=== PATIENT | male | born 1965 | race Caucasian/White ===

== ENCOUNTER 2022-04-14 13:15 | Outpatient (REF) | payer SELFPAY ==
[2022-05-30 18:17] LABS: Lithium, Serum or Plasma 0.2
== END 2022-04-14 13:16 | disposition home or self-care (01) ==
LOC: NPINS 13:15
PROVIDERS: Nurse Practitioner Psychiatric/Mental Health; PCP Family Medicine
DX: Z51.81 Encounter for therapeutic drug level monitoring (principal)
CPT/HCPCS: 80164; 80165; 80178

== ENCOUNTER 2023-01-30 13:54 | Outpatient (REF) | payer OTHER, SELFPAY ==
[2023-01-30 16:14] LABS: Albumin* 4.6 g/dL (3.3-5.0); Chloride* 104 mmol/L (96-114)
[2023-01-30 16:15] LABS: Potassium* 4.4 mmol/L (3.6-5.1); Sodium* 140 mmol/L (135-149)
[2023-01-30 16:17] LABS: Aspartate Amino Transferase* 23 U/L (12-35); Bilirubin Direct* 0.1 mg/dL (0.0-0.5); Bilirubin Total* 0.7 mg/dL (0.1-1.5); Blood Urea Nitrogen* 6 mg/dL (7-30); Carbon Dioxide* 29 mmol/L (20-32); Cholesterol* 224 mg/dL (90-199); Creatinine* 0.8 mg/dL (0.5-1.5); Estimated Glomerular Filt Rate 105 ml/min; Glucose* 100 mg/dL (60-115); Total Protein* 7.1 g/dL (6.0-8.3)
[2023-01-30 16:18] LABS: Alanine Aminotransferase* 21 U/L (4-50); Alkaline Phosphatase* 85 U/L (40-150); Calcium* 9.5 mg/dL (8.4-10.6); HDL Cholesterol* 48 mg/dL (>=40); LDL Cholesterol Calculated 113 mg/dL (<100); Triglycerides* 313 mg/dL (40-149)
== END 2023-01-30 13:55 | disposition home or self-care (01) ==
LOC: NPINS 13:54
PROVIDERS: PCP Family Medicine; Visit Provider Nurse Practitioner Psychiatric/Mental Health
DX: I10 Essential (primary) hypertension (principal); F10.21 Alcohol dependence, in remission; F31.81 Bipolar II disorder
CPT/HCPCS: 80048; 80061; 80076; 84443

== ENCOUNTER 2023-10-08 17:17 | Outpatient (CLI) | payer OTHER, SELFPAY | END 2023-10-08 17:18 | disposition home or self-care (01) | LOC: LKVREF 17:17 | PROVIDERS: PCP Family Medicine; Visit Provider Physician Assistant Medical | DX: Z12.5 Encounter for screening for malignant neoplasm of prostate (principal) | CPT/HCPCS: G0103 ==

== ENCOUNTER 2023-11-02 09:48 | Outpatient (CLI) | payer OTHER, SELFPAY ==
--- NOTE | 2023-11-02 11:52 | W.ANESCHARGE ---
Anesthesia Charges Start Date/Time Anesthesia Start Date: 11/02/23 Anesthesia Start Time: 11:02 Stop Date/Time Anesthesia Stop Date: 11/02/23 Anesthesia Stop Time: 11:47
== END 2023-11-02 09:49 | disposition home or self-care (01) ==
LOC: OP CLINIC 09:49
PROVIDERS: PCP Family Medicine; Visit Provider Internal Medicine
DX: Z12.11 Encounter for screening for malignant neoplasm of colon (principal); K63.5 Polyp of colon; K57.30 Diverticulosis of large intestine without perforation or abscess without bleeding; K22.89 Other specified disease of esophagus; R12 Heartburn
CPT/HCPCS: 00811; 43239; 45380; 88305; J2704

== ENCOUNTER 2024-01-16 08:23 | Outpatient (CLI) | payer OTHER, SELFPAY | END 2024-01-16 08:24 | disposition home or self-care (01) | PROVIDERS: PCP Physician Assistant Medical; Visit Provider Physician Assistant Medical | DX: I10 Essential (primary) hypertension (principal); R25.1 Tremor, unspecified; Z13.29 Encounter for screening for other suspected endocrine disorder; Z13.21 Encounter for screening for nutritional disorder | CPT/HCPCS: 80053; 80164; 80165; 80178; 82525; 82550; 82746; 83655; 83735; 84425; 84439; 84443 ==

== ENCOUNTER 2024-04-10 14:59 | Outpatient (CLI) | payer OTHER, SELFPAY | END 2024-04-10 15:00 | disposition home or self-care (01) | LOC: NFLDREF 04-11 05:53 | PROVIDERS: PCP Physician Assistant Medical; Referring Provider Physician Assistant Medical; Visit Provider Physician Assistant Medical | DX: D64.9 Anemia, unspecified (principal); R63.4 Abnormal weight loss; R79.89 Other specified abnormal findings of blood chemistry; I10 Essential (primary) hypertension | CPT/HCPCS: 82607; 83540; 83550; 84443 ==

== ENCOUNTER 2024-04-21 14:42 | Outpatient (CLI) | payer OTHER, SELFPAY ==
--- NOTE | 2024-04-21 15:00 | CRLHL7_ITS ---
For Patients: As a result of the Century Cures Act, medical imaging exams and procedure reports are released immediately into your electronic medical record. You may view this report before your referring provider. If you have questions, please contact your health care provider. Indication: WEIGHT LOSS, ANEMIA Technique: CT Chest/Abd/Pelvis 95CC ISOVUE 370 AND WATER PREP Please note that all CT scans at this facility use dose modulation, iterative reconstruction, and/or weight-based dosing when appropriate to reduce radiation dose to as low as reasonably achievable. Comparison: None Findings: In the chest, there is no suspicious thyroid nodule. No enlarged mediastinal, hilar or axillary lymph nodes. No pleural or pericardial effusion. No intrinsic osseous lesion or fracture. Multilevel degenerative disc disease. Atherosclerotic disease. Dependent areas of atelectasis noted. No pulmonary edema or infiltrate. No suspicious pulmonary nodule. No pneumothorax. In the abdomen, subcentimeter cyst in the right hepatic lobe. Additional sub 5 millimeter cyst left hepatic lobe. Spleen normal. Adrenal glands unremarkable. Normal kidneys. Pancreas normal. Gallbladder unremarkable. No adenopathy. No bowel obstruction. In the pelvis, the bladder is normal. Prostate calcifications are present. No bowel obstruction, free air, free fluid or abscess. Postop changes right inguinal hernia repair. Left inguinal hernia containing fat is present measuring 2.4 cm. Subtle wall thickening of the proximal sigmoid colon noted. No pelvic sidewall or inguinal adenopathy. Posterior ridging L5-S1 disc space narrowing and spurring L2-3. Impression: Subtle wall thickening of the proximal sigmoid colon may be present which could be secondary to chronic mild diverticulitis. However, recommend correlation with colonoscopy if not already performed in the last 2-3 years. No adenopathy in the chest, abdomen or pelvis. No suspicious pulmonary nodule. Incidental tiny intrahepatic cysts. Please note that all CT scans at this facility use dose modulation, iterative reconstruction, and/or weight-based dosing when appropriate to reduce radiation dose to as low as reasonably achievable. Dictated by Shon Becerra MD @ 04/22/2024 11:28:47 AM (Electronically Signed)
== END 2024-04-21 14:43 | disposition home or self-care (01) ==
PROVIDERS: PCP Physician Assistant Medical; Visit Provider Physician Assistant Medical
DX: R63.4 Abnormal weight loss (principal); K76.89 Other specified diseases of liver; D64.9 Anemia, unspecified
CPT/HCPCS: 71260; 74177; Q9967

== ENCOUNTER 2024-06-30 23:00 | Outpatient (REF) | payer OTHER, SELFPAY ==
[2024-07-04 02:14] LABS: Valproic Acid, Free <7 ug/mL (7-23); Valproic Acid, Total 35 ug/mL (50-125)
== END 2024-06-30 23:01 | disposition home or self-care (01) ==
LOC: NPINS 23:00
PROVIDERS: PCP Physician Assistant Medical; Visit Provider Nurse Practitioner Psychiatric/Mental Health
DX: F10.21 Alcohol dependence, in remission (principal); F31.81 Bipolar II disorder
CPT/HCPCS: 80164; 80165

== ENCOUNTER 2024-07-28 13:16 | Outpatient (CLI) | payer OTHER, SELFPAY | END 2024-07-28 13:17 | disposition home or self-care (01) | PROVIDERS: PCP Physician Assistant Medical; Visit Provider Physician Assistant Medical | DX: D64.9 Anemia, unspecified (principal); R79.89 Other specified abnormal findings of blood chemistry; I10 Essential (primary) hypertension; M79.671 Pain in right foot | CPT/HCPCS: 80164; 80165; 82728; 83540; 83550; 85045; 86231; 86258; 86364 ==

== ENCOUNTER 2025-04-13 15:00 | Outpatient (CLI) | payer OTHER, SELFPAY | END 2025-04-13 15:01 | disposition home or self-care (01) | PROVIDERS: PCP Physician Assistant Medical; Visit Provider Physician Assistant Medical | DX: I10 Essential (primary) hypertension (principal); D64.9 Anemia, unspecified; R79.89 Other specified abnormal findings of blood chemistry; Z12.5 Encounter for screening for malignant neoplasm of prostate; F31.9 Bipolar disorder, unspecified | CPT/HCPCS: 80053; 82306; 82728; 83540; 83550; 84443; G0103 ==

== ENCOUNTER 2025-06-03 14:10 | Outpatient (CLI) | payer OTHER, SELFPAY | END 2025-06-03 14:11 | disposition home or self-care (01) | PROVIDERS: PCP Physician Assistant Medical; Visit Provider Physician Assistant Medical | DX: E55.9 Vitamin D deficiency, unspecified (principal); D64.9 Anemia, unspecified; I10 Essential (primary) hypertension; F32.A Depression, unspecified | CPT/HCPCS: 82306; 82607; 82728; 83735; 84425; 84443 ==

== ENCOUNTER 2025-06-16 09:45 | Outpatient (CLI) | payer OTHER, SELFPAY ==
--- NOTE | 2025-06-16 10:15 | CRLHL7_ITS ---
For Patients: As a result of the Century Cures Act, medical imaging exams and procedure reports are released immediately into your electronic medical record. You may view this report before your referring provider. If you have questions, please contact your health care provider. Indication: Headache. Technique: Multiplanar multisequence noncontrast MR images of the brain. Comparison: MRI brain 09/21/2015. Findings: Mild diffuse cerebral volume loss has slightly progressed. No mass effect or midline shift. Minimal FLAIR hyperintensity adjacent to the left frontal horn has increased and is favored to represent sequela of chronic microvascular ischemic changes. No intracranial hemorrhage or pathologic extra-axial fluid collection. Small focus of mild diffusion restriction and FLAIR hyperintensity within the left middle frontal gyrus, compatible with subacute infarction. Small retrocerebellar arachnoid cyst or delvin cisterna magna. The major arterial flow voids of the skull base are preserved. Globes are symmetric. Mild ethmoid sinus mucosal thickening. Mastoid air cells are clear. Impression: 1. Small subacute infarction within the left middle frontal gyrus. 2. Mild diffuse cerebral volume loss has slightly progressed. Dictated by Rodney Early MD @ 06/17/2025 5:51:44 PM (Electronically Signed)
== END 2025-06-16 09:46 | disposition home or self-care (01) ==
LOC: MRI 09:46
PROVIDERS: PCP Physician Assistant Medical; Visit Provider Physician Assistant Medical
DX: R51.9 Headache, unspecified (principal); I63.9 Cerebral infarction, unspecified
CPT/HCPCS: 70551

== ENCOUNTER 2025-06-29 14:23 | Outpatient (CLI) | payer OTHER, SELFPAY | END 2025-06-29 14:24 | disposition home or self-care (01) | PROVIDERS: PCP Physician Assistant Medical; Visit Provider Physician Assistant Medical | DX: F31.9 Bipolar disorder, unspecified (principal) | CPT/HCPCS: 80061; 80178 ==

== ENCOUNTER 2025-07-23 14:52 | Outpatient (CLI) | payer OTHER, SELFPAY ==
[2025-07-23 21:44] LABS: Hemoglobin* 15.4 gm/dL (13.5-17.5)
[2025-07-23 21:50] LABS: Cholesterol* 206 mg/dL (90-199); HDL Cholesterol* 51 mg/dL (>=40); Triglycerides* 320 mg/dL (40-149)
[2025-07-23 21:56] LABS: Iron* 143 ug/dL (49-181)
[2025-07-23 22:05] LABS: Percent Iron Saturation 43 % (20-50); Total Iron Binding Capacity 332 ug/dL (261-462)
== END 2025-07-23 14:53 | disposition home or self-care (01) ==
LOC: NPINS 14:53
PROVIDERS: PCP Physician Assistant Medical; Visit Provider Psychiatry & Neurology Sleep Medicine
DX: R25.9 Unspecified abnormal involuntary movements (principal); E83.10 Disorder of iron metabolism, unspecified; I63.9 Cerebral infarction, unspecified
CPT/HCPCS: 80061; 82728; 83540; 83550; 85018

== ENCOUNTER 2025-08-21 16:00 | Outpatient (CLI) | payer OTHER, SELFPAY | END 2025-08-21 16:01 | disposition home or self-care (01) | LOC: LKVREF 08-25 16:03 | PROVIDERS: PCP Physician Assistant Medical; Visit Provider Physician Assistant Medical | DX: F31.9 Bipolar disorder, unspecified (principal) | CPT/HCPCS: 80178 ==